=== PATIENT | male | born 1985 | race Caucasian/White ===

== ENCOUNTER 2021-05-16 12:03 | Emergency (ER) | payer BC ==
[~2021-05-16] VITALS: Ht 180.3 cm; Wt 79.4 kg
[2021-05-16 13:48] VITALS: BP 146/87
--- NOTE | 2021-05-16 13:54 | NUR ---
Patient discharged to home in stable condition. Written and verbal after care instructions given. Patient verbalizes understanding of instructions. Stressed follow up or return to ER for worsening s/s.finger splinted per md order prior to dc
== END 2021-05-16 13:55 | disposition home or self-care (01) ==
LOC: ER 12:03
DX: M20.011 Mallet finger of right finger(s) (principal); S69.81XA Other specified injuries of right wrist, hand and finger(s), initial encounter; W21.9XXA Striking against or struck by unspecified sports equipment, initial encounter; Y93.66 Activity, soccer; Y92.89 Other specified places as the place of occurrence of the external cause
CPT/HCPCS: 73140; A4663